=== PATIENT | male | born 1955 | race Caucasian/White ===

== ENCOUNTER 2020-03-03 10:56 | Outpatient (CLI) | payer MEDICARE | END 2020-03-03 23:59 | disposition home or self-care (01) | LOC: CVU 10:56 | PROVIDERS: ATTEND Internal Medicine Cardiovascular Disease | DX: I11.9 Hypertensive heart disease without heart failure (principal); Z95.2 Presence of prosthetic heart valve | CPT/HCPCS: 93306; 93356 ==

== ENCOUNTER → 2020-03-19 | Outpatient (CLI) | payer MEDICARE ==
[~2020-03-19] MED LIST: OMNIPAQUE 350 MG/ML, 100ML BOTTLE ONE
== END | disposition home or self-care (01) ==
LOC: CFH 14:01
PROVIDERS: ATTEND Otolaryngology
DX: J38.1 Polyp of vocal cord and larynx (principal); J38.3 Other diseases of vocal cords
CPT/HCPCS: 70491; Q9967

== ENCOUNTER → 2020-07-28 | Outpatient (CLI) | payer MEDICARE | END | disposition home or self-care (01) | LOC: ROC 07:24 | PROVIDERS: ATTEND Radiology Radiation Oncology | DX: C32.0 Malignant neoplasm of glottis (principal); C32.9 Malignant neoplasm of larynx, unspecified | CPT/HCPCS: 99214; G0463 ==

== ENCOUNTER 2020-09-28 07:22 | Outpatient (CLI) | payer MEDICARE | END 2020-09-28 23:59 | disposition home or self-care (01) | LOC: ROC 07:22 | PROVIDERS: ATTEND Radiology Radiation Oncology | DX: Z08 Encounter for follow-up examination after completed treatment for malignant neoplasm (principal); Z85.21 Personal history of malignant neoplasm of larynx | CPT/HCPCS: G0463 ==